=== PATIENT | male | born 1985 | race Caucasian/White ===

== ENCOUNTER 2019-01-27 22:01 | Emergency (ER) | payer MEDICAID ==
[~2019-01-27] VITALS: Ht 177.8 cm; Wt 74.8 kg
[2019-01-27 22:06] VITALS: BP 125/82
--- NOTE | 2019-01-27 22:06 | NUR ---
ED Nurse Note: Pt arrived ambulatory into ED for complaint of rectal bleeding and pain. Pt has hx of hemmorhoids. Pt was advised not to do much exercise as hemmorhoids can worsten. But recently pt has been working out more often and began noticing worstening of pain again. Pt states creams have not been working.
[2019-01-27] MEDS ORDERED: BIKTARVY 50-201 EACH PO (22:17)
[2019-01-27] MEDS: Lidocaine HCl 2% Jelly 6ml Tube TOPIC ONE ×2 (22:45→22:47)
--- NOTE | 2019-01-27 22:45 | NUR ---
ED Nurse Note: Pt refused medication. States that no topical medication has been helping @ home.
--- NOTE | 2019-01-27 22:46 | NUR ---
ED Nurse Note: I asked pt if he'd like to to talk to dr regarding any other medication or treatment that can be provided. Pt refused. Stated he'd prefer to leave.
[2019-01-27] MEDS ORDERED: LIDOCAINE-HC28.35 GM TP (22:49)
[2019-01-27] MEDS ORDERED: COLACE100 MG ORAL (22:49)
[2019-01-27 22:54] VITALS: BP 126/60
--- NOTE | 2019-01-27 22:54 | NUR ---
ED Nurse Note: Pt cleared by . Pt A/Ox4, showing no signs of acute distress. VSS. Discharge paperwork and prescrptions provided. Pt verbalized understanding of all instructions. All belongings taken with pt. ID band removed. Pt ambulted out of ED with steady gait.
--- NOTE | 2019-01-28 00:20 | Emergency Room Report ---
History of Present Illness General Chief Complaint: General Complaint Source: Patient Present Illness HPI Patient is a 33-year-old male who presented after increased rectal discomfort. Patient had prior history of hemorrhoids in the past. He reports having worsening pain to his rectal area. Patient reports having some small amount of bleeding. He denies any dizziness or profuse bleeding.Patient reports having intermittent worsening of condition. He denies any severe alcohol intake. He had prior history of HIV. He takes Biktarvy regularly. He had been seen by his doctor yesterday. Allergies: Coded Allergies: PENICILLINS (Verified Allergy, Unknown, 01/27/19) SULFAMETHOXAZOLE (Verified Allergy, Unknown, 01/27/19) TRIMETHOPRIM (Verified Allergy, Unknown, 01/27/19) Patient History Past Medical History: see triage record Reviewed Nursing Documentation: PMH: Agreed; PSxH: Agreed Nursing Documentation-PMH Past Medical History: No History, Except For Review of Systems All Other Systems: negative except mentioned in HPI Physical Exam Vital Signs Date Time Temp Pulse Resp B/P (MAP) Pulse Ox O2 Delivery O2 Flow Rate FiO2 01/27/19 22:05 97.9 76 18 125/82 (96) 97 Room Air Sp02 EP Interpretation: reviewed, normal General Appearance: normal inspection, well appearing, no apparent distress, alert, GCS 15, non-toxic Head: atraumatic ENT: normal ENT inspection, hearing grossly normal, normal voice Neck: normal inspection, full range of motion Respiratory: normal inspection, lungs clear, normal breath sounds, no respiratory distress, no retraction, no wheezing Cardiovascular #1: regular rate, rhythm, no edema Gastrointestinal: normal inspection Rectal: hemorrhoids - with some discoloration of the skin, no thrombosis or bleeding Genitourinary: no CVA tenderness Musculoskeletal: normal inspection, normal range of motion Neurologic: normal inspection, alert, oriented x3, responsive, 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 Differential diagnosis include was not limited to thrombosed hemorrhoid, rectal cancer, genital warts among others. Patient has a benign exam and does not appear to require any further imaging or laboratory testing at this time. Patient was noted to have rectal pain. Patient was offered topical lidocaine which he refused. Patient was advised outpatient follow-up with his physician for referral to physician for treatment of hemorrhoids. He was advised sitz bath's as well as given prescription for stool softeners. Patient does not appear to have any evidence of thrombosed hemorrhoid or abscess. Last Vital Signs Date Time Temp Pulse Resp B/P (MAP) Pulse Ox O2 Delivery O2 Flow Rate FiO2 01/27/19 22:05 97.9 76 18 125/82 (96) 97 Room Air Status: improved Disposition: HOME, SELF-CARE Condition: Stable Scripts Hydrocortisone Ac/Lidocaine (LIDOCAINE-HC 3-0.5% CREAM) 28.35 Gm Cream..g. 28.35 GM TP DAILY, #30 GM Prov: Zaid Rivera MD 01/27/19 Docusate Sodium* (COLACE*) 100 Mg Capsule 100 MG ORAL TWICE A DAY, #20 CAP Prov: Zaid Rivera MD 01/27/19 Patient Instructions: How to Take a Sitz Bath, Hemorrhoids, Ppre-[id number] Additional Instructions: Follow up with your doctor for referral to colorectal physician. Zaid Rivera MD January 28, 2019 00:20
== END 2019-01-27 22:54 | disposition home or self-care (01) ==
LOC: EMR 22:33
DX: K64.9 Unspecified hemorrhoids (principal); Z88.0 Allergy status to penicillin; Z88.2 Allergy status to sulfonamides; Z88.8 Allergy status to other drugs, medicaments and biological substances
CPT/HCPCS: 99282